=== PATIENT | female | born 1970 | race Caucasian/White ===

== ENCOUNTER 2018-03-29 09:00 | Day surgery (SDC) | payer BC ==
[2018-03-29] MEDS ORDERED: PROPOFOL 40 ML (10:42)
== END 2018-03-29 12:24 | disposition home or self-care (01) ==
LOC: GIL 09:00
DX: R10.10 Upper abdominal pain, unspecified (principal); K64.8 Other hemorrhoids
CPT/HCPCS: 43239; 88305